=== PATIENT | female | born 1945 | race Caucasian/White ===

== ENCOUNTER 2021-04-29 15:53 | Emergency (ER) | payer BC ==
[~2021-04-29] VITALS: Ht 165.1 cm; Wt 54.4 kg
[2021-04-29 15:53] VITALS: BP_SYST 129
[2021-04-29] MEDS ORDERED: NACL 0.9% 1,000 ML IV ONE (16:00)
[2021-04-29 16:35] LABS: BASOPHILS # (AUTO) 0.1 K/uL (0.0-0.2); BASOPHILS % (AUTO) 1.1 % (0.0-2.0); EOSINOPHILS # (AUTO) 0.2 K/uL (0.0-0.4); EOSINOPHILS % (AUTO) 2.6 % (0.0-4.0); HEMATOCRIT 32.9 % (36-48); HEMOGLOBIN 11.2 g/dL (12.0-16.0); LYMPHOCYTES % (AUTO) 35.5 % (20.5-51.5); MEAN CORPUSCULAR HEMOGLOBIN 32 pg (27-31); MEAN CORPUSCULAR HGB CONC 34 % (32-36); MEAN CORPUSCULAR VOLUME 93 fL (79.0-98.0); MONOCYTES # (AUTO) 0.7 K/uL (0.0-1.0); MONOCYTES % (AUTO) 8.4 % (1.7-9.3); NEUTROPHILS # (AUTO) 4.5 K/uL (1.8-7.7); NEUTROPHILS % (AUTO) 52.4 % (40.0-70.0); PLATELET COUNT (AUTO) 266 K/uL (130-430); RED BLOOD CELL COUNT(AUTO) 3.52 MIL/uL (4.2-6.2); RED CELL DISTRIBUTION WIDTH 13.8 % (9.0-15.0); WHITE BLOOD COUNT (AUTO) 8.5 K/uL (4.8-10.8)
[2021-04-29 16:45] LABS: ANION GAP 10 (5-15); CALCIUM 8.8 mg/dL (8.4-11.0); CHLORIDE 108 mmol/L (98-107); CREATININE 1.28 mg/dL (0.55-1.30); GLUCOSE 123 mg/dL (70-99); POTASSIUM 3.1 mmol/L (3.5-5.1); SODIUM SERUM 145 mmol/L (136-145); UREA NITROGEN, BLOOD 18 mg/dL (8-21)
[2021-04-29 16:46] LABS: PROTHROMBIN TIME 10.2 SECS (9.5-12.5)
[2021-04-29 16:51] LABS: ALANINE AMINOTRANSFERASE 15 U/L (12-78); ASPARTATE AMINOTRANSFERASE 18 U/L (10-37); TOTAL BILIRUBIN 0.3 mg/dL (0.0-1.0)
[2021-04-29 18:51] VITALS: BP_SYST 129
== END 2021-04-29 18:51 | disposition home or self-care (01) ==
LOC: SED 15:53
DX: R55 Syncope and collapse (principal); K21.9 Gastro-esophageal reflux disease without esophagitis
CPT/HCPCS: 36415; 70450; 71045; 76376; 80053; 82550; 83605; 84484; 85025; 85610; 85730; 93005; 96360; 99285; J7030